=== PATIENT | female | born 1950 | race American Indian/Alaskan Native ===

== ENCOUNTER 2017-05-25 12:59 | Outpatient (CLI) | payer MEDICARE ==
--- NOTE | 2017-05-26 11:37 | Mammography Report ---
BILATERAL DIGITAL SCREENING MAMMOGRAM with CAD: 05/25/17 12:59:00 CLINICAL: Routine screening. COMPARISON: 04/05/04 FINDINGS: The breast are almost entirely fatty.No mass, architectural distortion or suspicious calcifications. IMPRESSION: No mammographic evidence of malignancy. BI-RADS CATEGORY: 1 -- Negative RECOMMENDATION: Routine mammographic screening in one year. COMMENT: Patient follow-up letters are generated by our [employer] application.
== END 2017-05-25 13:00 | disposition home or self-care (01) ==
LOC: SPVIMAG 12:59
PROVIDERS: ATTEND Internal Medicine
DX: Z12.31 Encounter for screening mammogram for malignant neoplasm of breast (principal)
CPT/HCPCS: 77067; G0202

== ENCOUNTER 2017-09-05 08:56 | Outpatient (CLI) | payer MEDICARE ==
--- NOTE | 2017-09-05 11:33 | Cat Scan Report ---
CT ABDOMEN WITH CONTRAST: 09/05/17 08:56:00 CLINICAL: Ventral abdominal hernia. COMPARISON: None. TECHNIQUE: Volumetric acquisition and 1.25 millimeter scan reconstructions after the uneventful intravenous injection of 100 cc Omnipaque 300. Consent was obtained prior to the administration of contrast. Oral contrast was also given. FINDINGS: Two small ventral abdominal wall defects with fat herniating through the defects. The larger defect is approximately 4 cm cephalad to the umbilicus and the defect measures approximately 19 mm. A smaller defect is located approximately 4 cm cephalad to the larger hernia in the defect measures 18 mm. Both hernias contain only fat and no bowel. In addition, there is a fat containing umbilical hernia. Lung bases are clear. The heart is large. The liver is small with normal overall density and contour. The right lobe measures 8.8 cm in length. No liver mass. The gallbladder and bile ducts are normal. Normal hepatic vasculature and inferior vena cava. Normal stomach, duodenum, pancreas and spleen. Normal adrenal glands and kidneys. The renal collecting systems and ureters are nondilated. Normal aorta and inferior vena cava. Imaged portions of small bowel are normal.Normal right colon. An appendix is not identified. Diverticulosis of the distal descending colon and left colon. No sign of diverticulitis. No mass, lymphadenopathy or ascites.No pneumoperitoneum. Bone windows demonstrate no suspicious bone lesion. 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 IMPRESSION:1.Two small fat-containing midline ventral hernias and a small fat-containing umbilical hernia. 2. Diverticulosis but no diverticulitis. 3. A relatively small but otherwise normal liver. 4. Cardiomegaly.
== END 2017-09-05 08:57 | disposition home or self-care (01) ==
LOC: SPVIMAG 08:56
PROVIDERS: ATTEND Internal Medicine
DX: K43.9 Ventral hernia without obstruction or gangrene (principal); K42.9 Umbilical hernia without obstruction or gangrene; K57.30 Diverticulosis of large intestine without perforation or abscess without bleeding; I51.7 Cardiomegaly; M41.85 Other forms of scoliosis, thoracolumbar region
CPT/HCPCS: 74160; Q9967